=== PATIENT | female | born 1955 | race Caucasian/White ===

== ENCOUNTER 2020-04-13 09:41 | Outpatient (CLI) | payer BC, SELFPAY ==
--- NOTE | 2020-04-13 09:48 | MM_ITS ---
WS: [id number] Bilateral screening digital mammogram, 04/13/2020 Clinical Data: SCREENING Comparison: 04/10/2019, 03/28/2019, 03/05/2019. Findings: The breast parenchymal pattern shows fat replacement. The left breast is normal. The right breast anibal ws several residual calcifications in the upper outer quadrant. No significant biopsy scar is seen. T he calcifications have not increased in number or changed in size or configuration, and there is a sm all biopsy clip adjacent to the calcifications. MM/[id number] Impression: 1. Residual calcifications in upper outer quadrant of the right breast. 2. Negative left breast. 3. Recommend annual screening mammograms. BIRADS: 2-Benign FOLLOW UP: 1 Year Follow-up The CAD report checker was used.
== END 2020-04-13 09:42 | disposition home or self-care (01) ==
LOC: RADSHAW 09:47
PROVIDERS: PCP Family Medicine; Visit Provider Family Medicine
DX: Z12.31 Encounter for screening mammogram for malignant neoplasm of breast (principal)
CPT/HCPCS: 77067

== ENCOUNTER → 2022-07-27 10:45 | Outpatient (BNVA) | payer MEDICARE, SELFPAY | PROVIDERS: PCP Family Medicine; Visit Provider Family Medicine | DX: I10 Essential (primary) hypertension (principal) | CPT/HCPCS: 80053; 80061 ==

== ENCOUNTER 2025-06-14 11:41 | Emergency (ER) | payer MEDICARE, OTHER, SELFPAY ==
--- OUTSIDE RECORDS SUMMARY | 2025-06-14 11:50 | XMS_ITS | Encounter Summary ---
Author Organization [employer] [facility] Address [address] [place] [address] Care Team Providers Care Embossing Calender Operator Name Role Phone Unavailable Primary Care Provider Unavailabl e Encounter Details Date Type Department Care Team (Latest Contact Info) Description 06/17/2001 Outpatient Historical HIS [facility] Travon, Wiliam Wall MD [address] [facility] [address] [place] [address] Calculus of gallbladder without mention of cholecystitis or obstruction (Primary Dx) Social History Tobacco Use Types Packs/Day Years Used Date Smoking Tobacco: Never Assessed Comments Unknown Sex and Gender Information Value Date Recorded Sex Assigned at Not on file 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
--- OUTSIDE RECORDS SUMMARY | 2025-06-14 11:50 | XMS_ITS | Encounter Summary ---
Author Organization [facility] Address [address] [place] [address] Care Team Providers Care Anesthesia Assistant Name Role Phone Unavailable Primary Care Provider Unavailabl e Encounter Details Date Type Department Care Team (Latest Contact Info) Description 07/03/2001 Outpatient Historical HIS [facility] Travon, Wiliam Wall MD [address] [phone] Follow-up examination, following unspecified surgery (Primary Dx) Social History Tobacco Use Types Packs/Day Years Used Date Smoking Tobacco: Never Assessed Comments Unknown Sex and Gender Information Value Date Recorded Sex Assigned at Not on file 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
--- OUTSIDE RECORDS SUMMARY | 2025-06-14 11:50 | XMS_ITS | Encounter Summary ---
Author Organization [employer] [facility] Address [address] [place] [address] Care Team Providers Care Heavy Equipment Service Technician Name Role Phone Unavailable Primary Care Provider Unavailabl e Encounter Details Date Type Department Care Team (Latest Contact Info) Description 04/01/2003 Outpatient Historical HIS [facility] Travon, Wiliam Wall MD [address] [facility] [address] [place] [phone] ABDOMINAL PAIN RUQ (Primary Dx); ABDOMINAL PAIN LLQ; DIARRHEA NOS Social History Tobacco Use Types Packs/Day Years Used Date Smoking Tobacco: Never Assessed Comments Unknown Sex and Gender Information Value Date Recorded Sex Assigned at Not on file Legal Sex Female 2:38 AM REDIPPER Gender Identity Not on file Sexual Orientation Not on file documented as of this encounter Plan of Treatment Not on file documented as of this encounter Visit Diagnoses Diagnosis Abdominal pain, right upper quadrant- Primary Abdominal pain, left lower quadrant Diarrhea documented in this encounter
--- OUTSIDE RECORDS SUMMARY | 2025-06-14 11:50 | XMS_ITS | Clinical Summary ---
Author Organization [employer] Address [address] [facility] Attn: [place] [address] Care Team Providers Care Hand Coremaker Name Role Phone Unavailable Primary Care Provider Unavailabl e Social History Tobacco Use Types Packs/Day Years Used Date Smoking Tobacco: Never Assessed Comments Unknown Sex and Gender Information Value Date Recorded Sex Assigned at Not on file Legal Sex Female 2:38 AM THERAPIST ASST Gender Identity Not on file Sexual Orientation Not on file Plan of Treatment Health Maintenance Due Date Last Done Comments DTAP/TDAP/TD VACCINES (1 - Tdap) 01/13/1976 BREAST CANCER SCREENING 1997 COLORECTAL SCREENING 2002 Colorectal Cancer Screening 2002 FIT-DNA Q 3 years 2002 FIT/FOBT Q 1 year 2002 Flex Sig/CT Colonography Q 5 years 2002 PNEUMOCOCCAL VACCINE 50+ YEARS (1 of 1 - PCV) 01/13/20 07 ZOSTER VACCINE (1 of 2) 2007 OSTEOPOROSIS SCREENING 2022 INFLUENZA VACCINE (#1) 2025 RSV VACCINE (60+ or ) (1 - 1-dose 75+ series) 01/13/2032
--- OUTSIDE RECORDS SUMMARY | 2025-06-14 11:50 | XMS_ITS | Encounter Summary ---
Author Organization [employer] [facility] Address [address] [place] [address] Care Team Providers Care Car Installations Supervisor Name Role Phone Unavailable Primary Care Provider Unavailabl e Encounter Details Date Type Department Care Team (Latest Contact Info) Description 04/15/2003 Outpatient Historical HIS [facility] Travon, Wiliam Wall MD [address] [facility] [address] [place] [phone] ABDOMINAL PAIN RUQ (Primary Dx); ABDOMINAL PAIN LLQ Social History Tobacco Use Types Packs/Day Years Used Date Smoking Tobacco: Never Assessed Comments Unknown Sex and Gender Information Value Date Recorded Sex Assigned at Not on file Legal Sex Female 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
--- OUTSIDE RECORDS SUMMARY | 2025-06-14 11:50 | XMS_ITS | Encounter Summary ---
Author Organization [employer] [facility] Address [address] [place] [address] Care Team Providers Care Geological Engineering Teacher Name Role Phone Unavailable Primary Care Provider Unavailabl e Encounter Details Date Type Department Care Team (Latest Contact Info) Description 05/01/2000 Outpatient Historical HIS 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
--- OUTSIDE RECORDS SUMMARY | 2025-06-14 11:50 | XMS_ITS | Encounter Summary ---
Author Organization [employer] [facility] Address [address] [place] [address] Care Team Providers Care Manager Social Responsibility Name Role Phone Unavailable Primary Care Provider Unavailabl e Encounter Details Date Type Department Care Team (Latest Contact Info) Description 05/20/2001 Outpatient Historical HIS [facility] Juan Miguel Narvaez MD [address] [place] [phone] Abdominal pain, right upper quadrant (Primary Dx); Lipoma of other skin and subcutaneous tissue Social History Tobacco Use Types Packs/Day Years Used Date Smoking Tobacco: Never Assessed Comments Unknown Sex and Gender Information Value Date Recorded Sex Assigned at Not on file Legal Sex Female 2:38 AM LICENSED OCCUPATIONAL THERAPY ASSISTANT Gender Identity Not on file Sexual Orientation Not on file documented as of this encounter Plan of Treatment Not on file documented as of this encounter Visit Diagnoses Diagnosis Abdominal pain, right upper quadrant- Primary Lipoma of other skin and subcutaneous tissue documented in this encounter
--- OUTSIDE RECORDS SUMMARY | 2025-06-14 11:50 | XMS_ITS | Encounter Summary ---
Author Organization [employer] [facility] Address [address] [place] [address] Care Team Providers Care Restaurant Management Internship Name Role Phone Unavailable Primary Care Provider Unavailabl e Encounter Details Date Type Department Care Team (Latest Contact Info) Description 05/30/2001 Outpatient Historical HIS [facility] Juan Miguel Narvaez MD [address] [place] [phone] Abdominal pain, unspecified site (Primary Dx); Calculus of gallbladder without mention of cholecystitis or obstruction Social History Tobacco Use Types Packs/Day Years Used Date Smoking Tobacco: Never Assessed Comments Unknown Sex and Gender Information Value Date Recorded Sex Assigned at Not on file Legal Sex Female 2:38 AM 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
[2025-06-14 11:58] VITALS: BP 156/87; PULSE 73; RESP 18; TEMP 36.6; O2SAT 99; BMI 41.1
[2025-06-14 12:53] LABS: Hematocrit 43.6 % (36-47); Hemoglobin 13.90 g/dL (11.27-16.99); Mean Corpuscular HGB Conc 31.9 g/dL (30-55); Mean Corpuscular Hemoglobin 28.4 pg (27-33); Mean Corpuscular Volume 89.2 fl (85-98); Nucleated Red Blood Cells % 0 %; Platelet Count 217 10^3/cmm (157-399); Red Blood Count 4.89 10^6/uL (3.85-5.65); White Blood Count 4.03 10^3/uL (3.29-11.43)
[2025-06-14 12:54] LABS: Glucose Urine UA Negative (Normal); Nitrate Urine Negative (Negative); Specific Gravity, Urine 1.010 (1.005-1.030)
[2025-06-14 12:56] LABS: Add Urine Microscopic? YES
--- NOTE | 2025-06-14 13:02 | CTR_ITS ---
PROCEDURE INFORMATION: Exam: CT Abdomen And Pelvis With Contrast Exam date and time: 06/14/2025 1:43 PM Age: 70 years old Clinical indication: Abdominal pain; Localized; Right; Prior surgery; Surgery date: 6+ months; Surgery type: Gb; Additional info: Abd pain TECHNIQUE: Imaging protocol: Computed tomography of the abdomen and pelvis with contrast. Radiation optimization: All CT scans at this facility use at least one of these dose optimization techniques: automated exposure control; mA and/or kV adjustment per patient size (includes targeted exams where dose is matched to clinical indication); or iterative reconstruction. Contrast material: OMNI 350; Contrast volume: 100 ml; Contrast route: INTRAVENOUS (IV); COMPARISON: CR XR [id number] 06/09/2025 12:40 PM RADIATION DOSE METRICS: Total DLP (mGy-cm): 1157.67 FINDINGS: Liver: Left hepatic simple cyst 1.4 x 1 cm. Gallbladder and biliary ducts: Post cholecystectomy changes are seen. Pancreas: Normal. No ductal dilation. Spleen: Normal. No splenomegaly. Adrenal glands: Normal. No mass. Kidneys and ureters: Stable bilateral renal cysts. Stomach and bowel: Sigmoid colon diverticulosis. No small bowel loop dilatation. Appendix: Appendix is not visualized. Intraperitoneal space: Unremarkable. No free air. No significant fluid collection. Vasculature: Unremarkable. No abdominal aortic aneurysm. Lymph nodes: Unremarkable. No enlarged lymph nodes. Urinary bladder: Unremarkable as visualized. Reproductive: Uterine fibroids are seen. Largest measures 3.1 x 2.7 cm. Fibroid uterus. Bones/joints: Mild lumbar spine degenerative changes. Soft tissues: Small fat containing umbilical hernia. CT/CT abdomen pelvis w con* [id number] IMPRESSION: 1. No acute abdominal or pelvic inflammatory changes. 2. Sigmoid colon diverticulosis. 3. Small fat containing umbilical hernia. 4. Mild lumbar spine degenerative changes. 5. Fibroid uterus.
[2025-06-14 13:05] VITALS: BP 163/82; O2SAT 97
--- NOTE | 2025-06-14 13:08 | W.ED.BACK ---
HPI - Back Pain/Injury General: Chief Complaint: Back Pain/Injury Stated Complaint: L side pain Time Seen by Provider: 06/14/25 11:42 Source: patient Mode of arrival: ambulatory Limitations: no limitations History of Present Illness: 70-year-old female states she is been having left upper abdominal pain has been going on for the last 4 to 5 days. She states the pain has been sharp rates that 7 out of 10. She denies any vomiting or diarrhea denies any worse improving factors denies any chest pain Associated symptoms: Reports abdominal pain; Deny chills, fever(s), nausea or vomiting Related Data Home Medications ?Medication ?Instructions ?Recorded ?Confirmed ibuprofen 200 mg tablet (Advil) 200 mg PO Q6H PRN Fever Or Pain 06/14/25 06/14/25 tamsulosin 0.4 mg capsule 0.4 mg PO QPM 06/14/25 06/14/25 Previous Rx's ?Medication ?Instructions ?Recorded losartan 25 mg tablet See Rx Instructions .Route 10/16/24 .COMPLEX #180 tabs Allergies Allergy/AdvReac Type Severity Reaction Status Date / Time No Known Allergies Allergy Verified 06/14/25 11:58 Review of Systems Const: Denies: fever(s), chills, body aches or change in appetite ENMT: Denies: throat pain or dental pain Card: Denies: chest pain Resp: Denies: dyspnea GI: Reports: abdominal pain; Denies: nausea, vomiting or diarrhea Musc: Denies: neck pain or back pain Skin/Breast: Denies: rash Neuro: Denies: headache(s) [facility] ED PFSH: Medical History (Updated 06/14/25 @ 15:31 by Noni Canseco MD) Hypertension Social History Smoking and tobacco/nicotine status: unknown if used tobacco/nicotine Physical Exam Const: COMMON NORMALS: no acute distress, patient oriented x3 and healthy appearing HENMT: COMMON NORMALS: normocephalic and atraumatic HEAD & SCALP: normocephalic and atraumatic Eye: COMMON NORMALS: conjunctivae normal CONJUNCTIVA: Yes conjunctivae normal Neck/C-Spine: COMMON NORMALS: full ROM and supple Chest: COMMONS NORMALS: normal inspection of the chest Resp: COMMON NORMALS: normal respiratory effort, No retractions, No use of accessory muscles and clear to auscultation bilaterally AUSCULTATION: clear to auscultation bilaterally Cardio: COMMON NORMALS: regular rate, regular rhythm and No murmurs present (Cardio) RATE: regular rate RHYTHM: regular rhythm GI: COMMON NORMALS: Normal to inspection, nondistended, normoactive bowel sounds present, Soft to palpation and no masses PALPATION: Yes Soft to palpation OTHER: luq tenderness Extremity: COMMON NORMALS: normal to inspection and full ROM Neuro: COMMON NORMALS: patient oriented x3, moves all extremities and no focal motor deficits Psych: COMMON NORMALS: mental status grossly normal, Normal thought process present and cooperative THOUGHT PROCESS: Normal thought process present Skin: COMMON NORMALS: no rashes or lesions noted and no wounds GENERAL SKIN EXAM: no rashes or lesions noted Course Vital Signs: Vital signs: Vital Signs Temperature 97.9 F 06/14/25 11:58 Pulse Rate 73 06/14/25 11:58 Respiratory Rate 18 06/14/25 11:58 Blood Pressure 133/70 06/14/25 14:39 Pulse Oximetry 97 06/14/25 14:39 Oxygen Delivery Me thod Room Air 06/14/25 14:39 MDM - Back Pain/Injury Medical Decision Making Patient presents here with abdominal pain patient's blood work CT are normal. Patient feels improved here abdominal exam at discharge benign she stable for discharge follow-up with PCP return if worsening. Medical Records I reviewed the patient's medical records. Labs I reviewed the patient's lab results. 06/14/25 12:39 06/14/25 12:39 Radiology Impressions Abdomen/Pelvis CT 06/14/25 13:02 IMPRESSION: 1. No acute abdominal or pelvic inflammatory changes. 2. Sigmoid colon diverticulosis. 3. Small fat containing umbilical hernia. 4. Mild lumbar spine degenerative changes. 5. Fibroid uterus. Laboratory Results WBC 4.03 10^3/uL (3.29-11.43) 06/14/25 12:39 RBC 4.89 10^6/uL (3.85-5.65) 06/14/25 12:39 Hgb 13.90 g/dL (11.27-16.99) 06/14/25 12:39 Hct 43.6 % (36-47) 06/14/25 12:39 MCV 89.2 fl (85-98) 06/14/25 12:39 MCH 28.4 pg (27-33) 06/14/25 12:39 MCHC 31.9 g/dL (30-55) 06/14/25 12:39 RDW 13.2 % (12.1-15.1) 06/14/25 12:39 Plt Count 217 10^3/cmm (157-399) 06/14/25 12:39 MPV 10.4 fL (7.4-10.4) 06/14/25 12:39 Neut % (Auto) 55.1 % 06/14/25 12:39 Lymph % (Auto) 29.3 % 06/14/25 12:39 Thomas % (Auto) 9.2 % 06/14/25 12:39 Eos % (Auto) 5.5 % 06/14/25 12:39 Baso % (Auto) 0.7 % 06/14/25 12:39 Neut # (Auto) 2.22 10^3/uL (1.8-7.7) 06/14/25 12:39 Lymph # (Auto) 1.2 10^3/uL (0.8-4.8) 06/14/25 12:39 Thomas # (Auto) 0.4 10^3/uL (0.2-0.9) 06/14/25 12:39 Eos # (Auto) 0.2 10^3/uL (0.0-0.8) 06/14/25 12:39 Baso # (Auto) 0.0 10^3/uL (0.0-0.1) 06/14/25 12:39 Nucleated RBC % (auto) 0 % 06/14/25 12:39 Nucleated RBCs # 0.0 /100WBC 06/14/25 12:39 Sodium 140 mmol/L (136-145) 06/14/25 12:39 Potassium 4.3 mmol/L (3.5-5.1) 06/14/25 12:39 Chloride 104 mmol/L (98-107) 06/14/25 12:39 Carbon Dioxide 28 mmol/L (22-29) 06/14/25 12:39 Anion Gap 12.3 (5-19) 06/14/25 12:39 BUN 11 mg/dL (8-23) 06/14/25 12:39 Creatinine 0.6 mg/dL (0.5-0.9) 06/14/25 12:39 GFR Calculation 99.4 mL/min (90-130) 06/14/25 12:39 Glucose 105 mg/dL (65-115) 06/14/25 12:39 Calculated Osmolality 290 mOsm/kg (285-295) 06/14/25 12:39 Calcium 9.0 mg/dL (8.5-10.5) 06/14/25 12:39 Total Bilirubin 0.7 mg/dL (0.15-1.2) 06/14/25 12:39 AST 19 U/L (0-32) 06/14/25 12:39 ALT 16 U/L (0-33) 06/14/25 12:39 Alkaline Phosphatase 100 U/L (35-105) 06/14/25 12:39 Total Protein 7.8 g/dL (6.6-8.7) 06/14/25 12:39 Albumin 4.0 g/dL (3.5-5.2) 06/14/25 12:39 Globulin 3.8 g/dL (1.3-4.6) 06/14/25 12:39 Lipase 16 U/L (13-60) 06/14/25 12:39 Urine Color [place] (Yellow) A 06/14/25 12:02 Urine Appearance Clear (CLEAR) 06/14/25 12:02 Urine pH 8.0 (5-7) A 06/14/25 12:02 Ur Specific [place] 1.010 (1.005-1.030) 06/14/25 12:02 Urine Protein Negative (Negative) 06/14/25 12:02 Urine Glucose (UA) Negative (Normal) 06/14/25 12:02 Urine Ketones Negative (Negative) 06/14/25 12:02 Urine Blood Trace (Negative) A 06/14/25 12:02 Urine Nitrate Negative (Negative) 06/14/25 12:02 Urine Bilirubin Negative (Negative) 06/14/25 12:02 Urine Urobilinogen 0.2 mg/dL (Negative) 06/14/25 12:02 Ur Leukocyte Esterase Negative (Negative) 06/14/25 12:02 Urine RBC 3-5 /hpf (0-2) 06/14/25 12:02 Urine WBC 0-5 /hpf (0-5) 06/14/25 12:02 Ur Squamous Epith Cells 0-5 /hpf (0-5) 06/14/25 12:02 Amorphous Sediment Not Reportable 06/14/25 12:02 Urine Bacteria None seen /hpf (NONE) 06/14/25 12:02 Hyaline Casts 0.40 /lpf 06/14/25 12:02 All radiology interpretation(s) finalized by discharge Discharge Plan Discharge Patient Disposition: Home Clinical Impression: Abdominal pain Condition: Stable Prescriptions: No Action losartan 25 mg tablet See Rx Instructions .ROUTE .COMPLEX Qty: 180 3RF Dose Instruction: TAKE ONE TABLET BY MOUTH TWO TIMES A DAY Rx Instructions: TAKE ONE TABLET BY MOUTH TWO TIMES A DAY tamsulosin 0.4 mg capsule 0.4 mg PO QPM ibuprofen [Advil] 200 mg Tablet 200 mg PO Q6H PRN (Reason: Fever Or Pain) Discharge Orders: Discharge ED (Routine); Ordered 06/14/25 Ordered By: Noni Canseco Referrals: Arnoldo Chaudhry MD [Primary Care Provider, Family Practice] - 4-7 days Discharge Diet: Advance as tolerated Discharge Activity: Resume usual activity Patient Instructions: Abdominal Pain (ED) Print Language: Japanese Coding Level of Care Code ED Power Grader Operator for Elizabeth June
[2025-06-14 13:14] LABS: Alanine Aminotransferase 16 U/L (0-33); Albumin Level 4.0 g/dL (3.5-5.2); Alkaline Phosphatase 100 U/L (35-105); Anion Gap 12.3 (5-19); Aspartate Amino Transferase 19 U/L (0-32); Blood Urea Nitrogen 11 mg/dL (8-23); Calcium 9.0 mg/dL (8.5-10.5); Carbon Dioxide 28 mmol/L (22-29); Chloride 104 mmol/L (98-107); Creatinine Clr Calc Pharmacy 81.1376; Globulin 3.8 g/dL (1.3-4.6); Glucose 105 mg/dL (65-115); Lipase 16 U/L (13-60); Osmolality Calculated 290 mOsm/kg (285-295); Potassium 4.3 mmol/L (3.5-5.1); Sodium 140 mmol/L (136-145); Total Protein 7.8 g/dL (6.6-8.7)
[2025-06-14] MEDS: morphine 4 mg/mL SDV 1 mL IVP (13:22)
[2025-06-14] MEDS: ondansetron 2 mg/ML SDV 2 mL 4 MG IVP (13:22)
[2025-06-14 13:30] VITALS: BP 163/82; O2SAT 96
[2025-06-14] MEDS: iohexol 350 mg/mL 500 mL Btl (per mL) IV (13:46)
[2025-06-14 14:39] VITALS: BP 133/70; O2SAT 97
[2025-06-14 16:03] VITALS: BP 137/55; PULSE 58; RESP 18; O2SAT 94
== END 2025-06-14 16:05 | disposition home or self-care (01) ==
PROVIDERS: Emergency Provider Emergency Medicine; PCP Family Medicine
DX: R10.12 Left upper quadrant pain (principal); I10 Essential (primary) hypertension
CPT/HCPCS: 36415; 74177; 80053; 81001; 83690; 85025; 96374; 96375; 99285; J2270; J2405; J7030